=== PATIENT | male | born 1990 | race Caucasian/White ===

== ENCOUNTER 2020-07-25 11:33 | Emergency (ER) | payer SELFPAY ==
[2020-07-25 11:41] VITALS: BP 168/117; PULSE 118; RESP 20; TEMP 36.8; O2SAT 99; BMI 25.1
--- NOTE | 2020-07-25 12:03 | ED_ITS ---
HPI - Anxiety General: Chief Complaint: Anxiety Stated Complaint: PANIC ATTACK, ETOH Time Seen by Provider: 07/25/20 11:54 History of Present Illness: HPI narrative: The patient is a 29-year-old male who comes to the ER complaining of a panic attack. He says he drinks alcohol heavily daily and has been without a job for several months and has recently switched to liquor from beer. He has not drinks for approximately 12 hours. No history of withdrawal seizures. He complains of severe anxiety right now. Denies SI and HI. MD complaint: anxiety, heart racing and shortness of breath Severity: severe Associated symptoms: Reports no associated symptoms and palpitations; Deny chest pain, confusion or headache(s) Review of Systems General: Reports: 10 or more systems reviewed and unremarkable except in HPI and below Const: Denies: fatigue Eyes: Denies: change in vision, blurry vision or eye redness ENMT: Denies: throat pain, swelling of lips/tongue, ear or mastoid pain or nasal congestion Card: Reports: palpitations; Denies: chest pain, irregular heart rhythm, edema, dyspnea on exertion or orthopnea Resp: Denies: dyspnea, productive cough or non-productive cough GI: Denies: abdominal pain, diarrhea or GI cramping : Denies: flank pain, urinary frequency or urinary urgency Musc: Denies: neck pain, back pain, extremity pain, joint pain, joint redness, limited range of motion or muscle weakness Skin/Breast: Denies: rash, pruritus, erythema, skin pain or skin tenderness Neuro: Denies: headache(s), numbness in extremities, weakness in extremities, sensory changes, difficulty walking, dizziness, confusion or Slurred speech present Psych: Denies: anxiety or depression Endo: Denies: polyuria All/Imm: Denies: urticaria, throat swelling or tongue swelling Physical Exam Const: COMMON NORMALS: no acute distress, average body habitus, patient oriented x3, no limitations, healthy appearing, alert and well nourished GENERAL APPEARANCE: cooperative, comfortable, well kempt and well developed ORIENTATION/CONSCIOUSNESS: Yes awake, Yes oriented to person, Yes oriented to place and Yes oriented to time HENMT: COMMON NORMALS: normocephalic, external ears normal and Normal external nose present HEAD & SCALP: normal to inspection and normocephalic NOSE: Normal external nose present EXTERNAL EAR: Yes external ears normal MOUTH: Normal oral and palatal mucosa present THROAT: posterior oropharynx normal Eye: COMMON NORMALS: Equal, round and reactive pupils present and EOMs intact bilaterally GENERAL EYE: appearance normal, both eyes and all related structures PUPIL: Yes Equal, round and reactive pupils present Neck/C-Spine: COMMON NORMALS: full ROM, no lymphadenopathy, no meningeal signs and no JVD GENERAL: Yes normal visual inspection Lymph: LYMPHATIC: no lymphadenopathy noted Chest: COMMONS NORMALS: normal inspection of the chest and normal palpation of entire chest wall Resp: COMMON NORMALS: normal respiratory effort, No retractions, No use of accessory muscles, clear to auscultation bilaterally and percussion normal EFFORT & INSPECTION: Yes able to speak in complete sentences AUSCULTATION: clear to auscultation bilaterally PERCUSSION: percussion normal Cardio: COMMON NORMALS: no JVD, regular rhythm, S1 normal heart sound present, S2 normal heart sound present and Peripheral pulses 2+ throughout RATE: tachycardic RHYTHM: regular rhythm HEART SOUNDS: S1 normal heart sound present and S2 normal heart sound present PERIPHERAL PULSES: Peripheral pulses 2+ throughout OTHER: Sinus tachycardia. When I entered the room it was 90 bpm after sitting down it was 120 he has clear white coat syndrome. GI: COMMON NORMALS: Normal to inspection, nondistended, normoactive bowel sounds present, Soft to palpation, non-tender and no masses INSPECTION: Yes normal to inspection PALPATION: Yes Soft to palpation : COMMON NORMALS: Yes no CVA tenderness BLADDER/KIDNEY EXAM: Yes no CVA tenderness Back/Pelvis: COMMON NORMALS: no CVA tenderness, thoracic and lumbar spine normal to inspection, no thoracic nor lumbar tenderness and thoraco-lumbar ROM normal Extremity: COMMON NORMALS: normal to inspection, full ROM, capillary refill normal, no joint enlargement and no pedal edema GENERAL: Yes normal exam except as noted Neuro: COMMON NORMALS: patient oriented x3, CN's II-XII intact bilaterally, moves all extremities, no focal motor deficits, no sensory deficits noted and gait normal SENSORIUM/ORIENTATION: Yes alert, Yes oriented to person, Yes oriented to place and Yes oriented to time MENINGEAL SIGNS: Yes no meningeal signs Psych: COMMON NORMALS: mental status grossly normal, Normal thought process present, cooperative, normal affect and speech normal APPEARANCE: Yes well kempt ATTITUDE: Yes calm SPEECH: Yes normal speech THOUGHT PROCESS: Normal thought process present Skin: COMMON NORMALS: no rashes or lesions noted GENERAL SKIN EXAM: no rashes or lesions noted Course Vital Signs: Vital signs: Vital Signs Temperature 98.2 F 07/25/20 11:41 Pulse Rate 88 07/25/20 12:38 Respiratory Rate 22 H 07/25/20 12:38 Blood Pressure 158/103 07/25/20 12:38 Pulse Oximetry 100 07/25/20 12:38 MDM - Anxiety MDM Narrative: Medical decision making narrative: Patient came in with acute anxiety and panic attack. He is likely also withdrawing from alcohol. He was given 1 mg Ativan IV and symptoms improved. He is stable for discharge. Discussed alcohol cessation with him and his elevated liver enzymes. Recommended getting them rechecked in a week when he has not been drinking. Set up with primary care physician and return to the ER with worsening symptoms Lab Data: Labs: Lab Results 07/25/20 07/25/20 Range/Units 11:50 11:50 WBC 8.5 (4.0-10.0) 10^3/ uL RBC 5.58 H (4.1-5.3) 10^6/u L Hgb 17.8 H (11.7-16.6) g/dL Hct 52.6 H (42.0-52.0) % MCV 94.3 H (80-94) fL MCH 31.9 (28.0-34.0) pg MCHC 33.8 (30.0-36.0) g/dL RDW 12.5 (12.1-15.1) % Plt Count 264 (130-400) 10^3/c mm MPV 8.7 (7.4-10.4) fL Neut % (Auto) 78.9 % Lymph % (Auto) 12.1 % [place] % (Auto) 7.8 % Eos % (Auto) 0.1 % Baso % (Auto) 0.7 % Neut # (Auto) 6.72 (1.8-7.7) 10^3/u L Lymph # (Auto) 1.0 (0.8-4.8) 10^3/u L [place] # (Auto) 0.7 (0.2-0.9) 10^3/u L Eos # (Auto) 0.0 (0.0-0.8) 10^3/u L Baso # (Auto) 0.1 (0.0-0.1) 10^3/u L Nucleated RBC % (a uto) 0 % Nucleated RBCs # 0.0 /100WBC Sodium 135 L (136-145) mmol/L Potassium 3.8 (3.5-5.1) mmol/L Chloride 96 L (98-107) mmol/L Carbon Dioxide 24 (22-29) mmol/L Anion Gap 18.8 (5-19) BUN 5 L (6-20) mg/dL Creatinine 0.9 (0.7-1.2) mg/dL GFR Calculation 100.5 (90-130) mL/min Glucose 141 H (65-115) mg/dL Calculated Osmolal ity 280 L (285-295) mOsm/k g Calcium 9.8 (8.5-10.5) mg/dL Total Bilirubin 0.7 (0.15-1.2) mg/dL AST 126 H (0-40) U/L ALT 192 H (0-41) U/L Alkaline Phosphata se 95 (40-130) IU/L Total Protein 8.4 (6.6-8.7) g/dL Albumin 5.0 (3.5-5.2) g/dL Globulin 3.4 (1.3-4.6) g/dL Lipase 25 (13-60) U/L Ethyl Alcohol < 10 (0-10) mg/dL Discharge Plan Discharge Patient Disposition: Home Clinical Impression: Acute anxiety Condition: Stable Prescriptions: No Action No Known Home Medications RF: 0 Discharge Orders: Discharge ED (Routine); Ordered 07/25/20 Ordered By: Srinivasan Desai Discharge Diet: Advance as tolerated Discharge Activity: Resume usual activity Patient Instructions: Abuse of Alcohol (ED), Anxiety (ED), Opioid Safety Activity Restrictions/Additional Instructions: Please cut back and eventually quit drinking alcohol. Return to the ER with worsening symptoms. Set up with a primary care physician to help you address medical issues as well. Get your liver enzymes rechecked in a week when you have not been drinking as they are elevated. Coding Level of Care Code ED Immunopathologist for [facility] Exam Comprehensive
[2020-07-25 12:06] LABS: Basophils # 0.1 10^3/uL (0.0-0.1); Basophils % 0.7 %; Eosinophils % 0.1 %; Hematocrit 52.6 % (42.0-52.0); Hemoglobin 17.8 g/dL (11.7-16.6); Lymphocytes % 12.1 %; Mean Corpuscular HGB Conc 33.8 g/dL (30.0-36.0); Mean Corpuscular Hemoglobin 31.9 pg (28.0-34.0); Mean Corpuscular Volume 94.3 fL (80-94); Mean Platelet Volume 8.7 fL (7.4-10.4); Monocytes # 0.7 10^3/uL (0.2-0.9); Monocytes % 7.8 %; Neutrophils # 6.72 10^3/uL (1.8-7.7); Neutrophils % 78.9 %; Nucleated Red Blood Cells % 0 %; Platelet Count 264 10^3/cmm (130-400); Red Blood Count 5.58 10^6/uL (4.1-5.3); Red Cell Distribution Width 12.5 % (12.1-15.1); White Blood Count 8.5 10^3/uL (4.0-10.0)
--- NOTE | 2020-07-25 12:06 | XRR_ITS ---
PROCEDURE INFORMATION: Exam: XR Chest Exam date and time: 07/25/2020 12:27 PM Age: 29 years old Clinical indication: Cardiovascular condition or disease; Other: Tachycardia; Patient HX: Anxiety TECHNIQUE: Imaging protocol: XR of the chest Views: 1 view. COMPARISON: No relevant prior studies available. FINDINGS: Lungs: Unremarkable. No consolidation. Pleural spaces: Unremarkable. No pleural effusion. No pneumothorax. Heart/Mediastinum: Unremarkable. No cardiomegaly. Bones/joints: Unremarkable. XR/XR chest 1V portable [id number] IMPRESSION: No acute findings.
[2020-07-25 12:20] LABS: Alanine Aminotransferase 192 U/L (0-41); Alkaline Phosphatase 95 IU/L (40-130); Anion Gap 18.8 (5-19); Aspartate Amino Transferase 126 U/L (0-40); Blood Urea Nitrogen 5 mg/dL (6-20); Calcium 9.8 mg/dL (8.5-10.5); Carbon Dioxide 24 mmol/L (22-29); Chloride 96 mmol/L (98-107); Globulin 3.4 g/dL (1.3-4.6); Glomerular Filtration Rate 100.5 mL/min (90-130); Glucose 141 mg/dL (65-115); Lipase 25 U/L (13-60); Osmolality Calculated 280 mOsm/kg (285-295); Potassium 3.8 mmol/L (3.5-5.1); Sodium 135 mmol/L (136-145); Total Bilirubin 0.7 mg/dL (0.15-1.2); Total Protein 8.4 g/dL (6.6-8.7)
[2020-07-25 12:24] LABS: Alcohol Level < 10 mg/dL (0-10)
[2020-07-25] MEDS: sodium chloride 0.9% 1,000 ML 999 ML IV (12:27)
[2020-07-25] MEDS: LORazepam 2 mg/mL INJ 1 mL 1 MG IVP (12:27)
[2020-07-25 12:38] VITALS: BP 158/103; PULSE 88; RESP 22; O2SAT 100
[2020-07-25 13:18] LABS: D Dimer < 0.00 ug/mIFEU (0-0.59)
[2020-07-25 13:24] VITALS: BP 147/97; PULSE 100; RESP 20; O2SAT 98
--- NOTE | 2020-07-25 15:38 | ECG_ITS ---
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 ALVARENGAB: 1990 Requested By: Srinivasan Desai Order Number: [id number] Ángela MD: JUAN MERAZ Measurements Intervals [place] Rate: 102 P: [place]: QRS: -21 QRSD: 113 T: 61 QT: 312 QTc: 408 Interpretive Statements SINUS TACHYCARDIA BORDERLINE LEFT AXIS DEVIATION [QRS AXIS < -20] INCOMPLETE RIGHT BUNDLE BRANCH BLOCK [90+ ms QRS DURATION, TERMINAL R IN V1/V2, 40+ ms S IN I/aVL/V4/V5/V6] ABNORMAL RHYTHM ECG No previous ECG available for comparison Electronically Signed On 07-25-2020 18:28:35 [employer]AD [employer] DEVELOPER by JUAN MERAZ [id number]
--- NOTE | 2020-07-26 12:32 | DCPLANNER ---
Addendum entered by Rachelle Carlos 07/27/20 07:17: Patients father called case resource manager back stating that patient needed a primary care physician, and would like one in the [place] area. corporate operations compliance manager called the [facility], gave clinic patients information. A follow up appointment was scheduled for Saturday, July 27, 2020 at 2:20 with RELIEF CAPTAIN, Lindsey Marcos. corporate operations compliance manager called patients dad and gave him the appointment information. Original Note: corporate operations compliance manager had message to speak with patient about getting established with a primary care physician. corporate operations compliance manager called [phone], unable to speak with patient, a voicemail was left for patient to return block and case maker phone call.
--- NOTE | 2020-08-09 15:59 | DCPLANNER ---
Patient had a follow up appointment scheduled for 07.27.20 with the [facility] - patient did attend appointment.
== END 2020-07-25 13:25 | disposition home or self-care (01) ==
PROVIDERS: Emergency Provider Family Medicine
DX: F41.9 Anxiety disorder, unspecified (principal)
CPT/HCPCS: 71045; 80053; 80307; 83690; 85025; 85378; 93005; 96361; 96374; 99284; J2060; J7030